=== PATIENT | female | born 1935 | race Caucasian/White ===

== ENCOUNTER 2024-09-28 04:28 | Inpatient (IN) | payer MEDICARE ==
[2024-09-28] MEDS ORDERED: Ondansetron PF 4 MG/2 ML Vial ONE (04:53)
[2024-09-28] MEDS ORDERED: cefTRIAXone (ROCEPHIN) 2 GM VIAL ONE (04:54)
[2024-09-28 06:15] LABS: #Basophils 0.05 10x3/uL (0.0-0.2); #Eosinophils Less than 0.03 10x3/uL (0.0-0.7); #Monocytes 0.82 10x3/uL (0.11-0.59); #Neutrophils 16.19 10x3/uL (1.40-6.50); %Basophils 0.3 % (0.0-1.0); %Eosinophils 0.1 % (0.0-10.0); %Lymphocytes 10.5 % (21.0-51.0); %Monocytes 4.2 % (0.0-10.0); %Neutrophils 82.2 % (42.0-75.0); Hematocrit 40.6 % (36.0-47.0); Hemoglobin 12.8 g/dL (12.0-16.0); Mean Corpuscular Hemoglobin 29.4 pg (27.0-31.0); Mean Corpuscular Volume 93.1 fL (78.0-98.0); Platelet Count 156 10x3/uL (130-400); Red Blood Cell (RBC) Count 4.36 mill/uL (4.20-5.40); White Blood Cell (WBC) Count 19.69 10x3/uL (4.8-10.8)
[2024-09-28 06:33] LABS: ALT (SGPT) 1753 U/L (Less than 34); AST (SGOT) 2141 U/L (11-34); Albumin 2.7 g/dL (3.1-4.5); Alkaline Phosphatase 46 U/L (40-110); Anion Gap 22 mmol/L (10-20); BUN (Urea Nitrogen) 48 mg/dL (9.8-20.1); Bilirubin, Total 0.6 mg/dL (0.3-1.2); Calc. Creatinine Clearance 0 mL/min (70-130); Calcium 8.6 mg/dL (7.8-10.44); Carbon Dioxide 20 mmol/L (23-31); Chloride 101 mmol/L (98-107); Globulin 3.2 g/dL (2.4-3.5); Glucose 307 mg/dL (83-110); Potassium 4.7 mmol/L (3.5-5.1); Sodium 138 mmol/L (136-145)
[2024-09-28 07:24] LABS: Actual Bicarbonate (HCO3v) 22.1 mEq/L (22-28); Base Excess -5.7 mEq/L (-2.0 to +3.0); Calcium, Ionized (venous) 1.16 mmol/L (1.16-1.32); Chloride (VBG) 98 mmol/L (98-106); Hematocrit-VBG 44 % (36.0-47.0); Hemoglobin (Hb) 14.9 g/dL (11.7-16.1); Potassium (VBG) 4.39 mmol/L (3.70-5.30); Sodium 136 mmol/L (133-146)
[2024-09-28] MEDS ORDERED: metroNIDAZOLE 500 MG (100 mL) BAG ONE (08:28)
[2024-09-28] MEDS ORDERED: Acetaminophen 325 MG TAB PO PRN (09:51)
[2024-09-28] MEDS ORDERED: Calcium Carbonate 500 MG ChewTAB PO PRN (09:51)
[2024-09-28] MEDS ORDERED: Dextrose 50% Abboject 50 ML SYRINGE SLOW IVP PRN (09:53)
[2024-09-28] MEDS ORDERED: Glucagon 1 MG/ML KIT IM PRN (09:53)
[2024-09-28] MEDS ORDERED: Heparin 10,000 UNITS/ 10 ML VIAL SLOW IVP SCH (10:00)
[2024-09-28] MEDS: Vasopressin In 0.9 % NaCl 100 ML ONE (10:10)
[2024-09-28 11:32] VITALS: BMI 40.3
[2024-09-28 11:37] LABS: Hematocrit 42.2 % (36.0-47.0); Hemoglobin 13.1 g/dL (12.0-16.0); Platelet Count 144 10x3/uL (130-400)
[2024-09-28] MEDS ORDERED: Vancomycin Dose by Levels Sliding Scale (Wt > 99) FS SCH (11:45)
[2024-09-28] MEDS ORDERED: Vasopressin In 0.9 % NaCl 40 UNIT in Premix 1 BAG IV SCH (12:00)
[2024-09-28] MEDS: Ondansetron PF 4 MG/2 ML Vial IVP PRN (12:55)
[2024-09-28] MEDS: Vancomycin (BATCH) 2 GM Premix IVPB SCH (13:00)
[2024-09-28] MEDS: VANCOMYCIN 2 GRAM/400 ML BAG 2 GM in Premix 1 BAG IVPB SCH (13:00)
[2024-09-28] MEDS: NOREPINEPHRINE 8 MG/250 ML-D5W 250 ML IVPB PRN (13:45)
[2024-09-28 16:24] VITALS: TEMP 97.9
[2024-09-28] MEDS ORDERED: Vancomycin (BATCH) 1.5 GM/300 ML BAG IVPB SCH (21:00)
[2024-09-29] MEDS ORDERED: cefTRIAXone\\ROCEPHIN 2 GM in Sodium Chloride 0.9% 100 ML IVPB SCH (06:00)
== END 2024-09-28 17:00 | disposition expired | DRG 871 ==
LOC: SJX 04:28 → CCU 08:18
PROVIDERS: ADMIT Student in an Organized Health Care Education/Training Program; ATTEND Student in an Organized Health Care Education/Training Program
PROC: 3E033XZ Introduction of Vasopressor into Peripheral Vein, Percutaneous Approach (ICD-10-PCS; principal; 2024-09-28)
PROC: 3E03329 Introduction of Other Anti-infective into Peripheral Vein, Percutaneous Approach (ICD-10-PCS; 2024-09-28)
PROC: 06HY33Z Insertion of Infusion Device into Lower Vein, Percutaneous Approach (ICD-10-PCS; 2024-09-28)
PROC: 3E04329 Introduction of Other Anti-infective into Central Vein, Percutaneous Approach (ICD-10-PCS; 2024-09-28)
PROC: 3E043XZ Introduction of Vasopressor into Central Vein, Percutaneous Approach (ICD-10-PCS; 2024-09-28)
DX: A41.9 Sepsis, unspecified organism (principal); I21.3 ST elevation (STEMI) myocardial infarction of unspecified site; R65.21 Severe sepsis with septic shock; K72.00 Acute and subacute hepatic failure without coma; Z66 Do not resuscitate; N17.9 Acute kidney failure, unspecified; I13.0 Hypertensive heart and chronic kidney disease with heart failure and stage 1 through stage 4 chronic kidney disease, or unspecified chronic kidney disease; E87.20 Acidosis, unspecified; E11.22 Type 2 diabetes mellitus with diabetic chronic kidney disease; N18.30 Chronic kidney disease, stage 3 unspecified; I50.9 Heart failure, unspecified; F03.90 Unspecified dementia, unspecified severity, without behavioral disturbance, psychotic disturbance, mood disturbance, and anxiety; Z96.653 Presence of artificial knee joint, bilateral; F41.9 Anxiety disorder, unspecified; K80.20 Calculus of gallbladder without cholecystitis without obstruction; Z82.49 Family history of ischemic heart disease and other diseases of the circulatory system; Z72.0 Tobacco use; Z88.0 Allergy status to penicillin; Z88.8 Allergy status to other drugs, medicaments and biological substances; I25.10 Atherosclerotic heart disease of native coronary artery without angina pectoris
CPT/HCPCS: 36415; 36416; 36556; 70450; 71045; 71250; 74177; 76705; 80053; 82010; 82805; 83036; 83605; 83880; 84484; 85025; 85730; 87040; 87077; 93005; 93923; 94760; 96361; 96365; 96366; 96375; 99292; J0696; J1815; J2060; J2270; J2405; J3375; J7030